=== PATIENT | male | born 1960 | race Caucasian/White ===

== ENCOUNTER 2021-02-07 10:31 | Emergency (ER) | payer OTHER, SELFPAY ==
[2021-02-07 10:37] VITALS: BP 154/86; PULSE 92; RESP 16; TEMP 37.5; O2SAT 98
[2021-02-07] MEDS: TETANUS,DIPHTHERIA,AC PERTUSSIS ADULT (0.5 ML) BOOSTRIX IM (11:16)
--- NOTE | 2021-02-07 11:53 | ED.GENADULT ---
HPI - General Adult General Chief complaint: Back Pain/Injury Stated complaint: head and back pain Time Seen by Provider: 02/07/21 10:58 Source: patient, family and RN notes reviewed Mode of arrival: ambulatory Limitations: no limitations History of Present Illness HPI narrative: Patient presents today complaint of a laceration to his forehead as well as right mid back pain. Patient fell down some stairs while intoxicated, likely striking his head either against the wall or against a stair. Denies loss of consciousness. Injury occurred last night approximately 12 hours prior to arrival. He struck his right scapular region on a stair as well and is having some pain to the mid back. He has not tried anything for pain prior to arrival. covered the forehead wound with a bandage last night. Patient is not up-to-date on his tetanus vaccine. MD complaint: Laceration, back pain Related Data Home Medications Medication Instructions Recorded Confirmed amlodipine 5 mg PO DAILY 02/07/21 02/07/21 lisinopril 40 mg PO DAILY 02/07/21 02/07/21 Allergies Allergy/AdvReac Type Severity Reaction Status Date / Time No Known Allergies Allergy Verified 02/07/21 10:55 Review of Systems Review of Systems: CONSTITUTIONAL: Denies body aches, fever, chills, or sweats. EYES: Denies visual changes, redness, or discharge. ENT: Denies rhinorrhea, congestion, sore throat, or otalgia. CARDIOVASCULAR: Denies chest pain, palpitations, or edema. RESPIRATORY: Denies cough or dyspnea. GASTROINTESTINAL: Denies abdominal pain, nausea, vomiting, or diarrhea. GENITOURINARY: Denies dysuria or hematuria. SKIN: Denies rash, itching, or wounds.+Right forehead laceration MUSCULOSKELETAL: Denies joint pain, or myalgia.+ Right mid back pain NEUROLOGIC: Denies headache, numbness, tingling, or weakness. PSYCH: Denies depression or anxiety. [facility] Past Medical History Medical History (Updated 02/08/21 @ 08:05 by Joselin Vick, [facility], ) Hypertension Comments At time of signature, I have reviewed and agree with nursing past medical, surgical, social and family history unless otherwise noted. Please see nursing chart for further information. There is no relevant family history pertinent to the presenting complaint Exam Narrative: GENERAL: Well-appearing, well-nourished, and in no acute distress. HEAD: Normocephalic, atraumatic. EYES: EOMI. PERRL. No redness or drainage. Conjunctivae normal. ENT: Mucous membranes pink and moist. NECK: Normal AROM. Supple. No lymphadenopathy. Nontender. CHEST: No respiratory distress. MUSCULOSKELETAL: No bony tenderness of the spine. Point muscular tenderness just under the right scapula. No ecchymosis or edema noted. Distal sensation intact. Capillary refill normal. EXTREMITIES: Normal range of motion. No edema. SKIN: Warm, dry, no rash. Capillary refill normal. Normal skin turgor. 2.5 cm x 0.5 cm full-thickness linear laceration to the right eyebrow extending to the midline forehead. No active bleeding. NEURO: No focal deficits. Alert and oriented x3. Gait steady. PSYCH: Normal affect. No signs of depression or anxiety. Course Vital Signs Vital signs: Vital Signs Temperature 99.5 F 02/07/21 10:37 Pulse Rate 92 02/07/21 10:37 Respiratory Rate 16 02/07/21 10:37 Blood Pressure 154/86 H 02/07/21 10:37 Pulse Oximetry 98 02/07/21 10:37 Temperature 99.5 F 02/07/21 10:37 Pulse Rate 92 02/07/21 10:37 Respiratory Rate 16 02/07/21 10:37 Blood Pressure 154/86 H 02/07/21 10:37 Pulse Oximetry 98 02/07/21 10:37 Procedures Laceration Laceration 1: Date: 02/07/21 Time: 11:53 Site: face Size (cm): 2.5 Description: linear Depth: simple, single layer Local Anesthetic: lidocaine 1% Amount of anesthesia used (mL): 3 Pre-repair: wound explored and irrigated ====== Skin Level ====== Skin layer closed with:
== END 2021-02-07 12:04 | disposition home or self-care (01) ==
PROVIDERS: Emergency Provider Nurse Practitioner; PCP Family Medicine
DX: S01.81XA Laceration without foreign body of other part of head, initial encounter (principal); W10.9XXA Fall (on) (from) unspecified stairs and steps, initial encounter; Z23 Encounter for immunization; I10 Essential (primary) hypertension
CPT/HCPCS: 12011; 90471; 90715; 99213; G0463

== ENCOUNTER 2023-09-30 09:19 | Outpatient (CLI) | payer OTHER, SELFPAY ==
--- NOTE | ~2023-09-30 | XR_ITS ---
Right Knee Technique: AP, lateral, and sunrise views were obtained. Clinical History: Osteoarthritis Findings: No fracture or dislocation is seen. Osseous alignment is anatomic. Joint spaces are preserv ed without degenerative or erosive change. Soft tissues are unremarkable. No joint effusion is seen. Impression: Unremarkable right knee radiographs. Reviewed, dictated and finalized at location . Impression: Unremarkable right knee radiographs.
--- NOTE | ~2023-09-30 | XR_ITS ---
Left Knee Technique: AP, lateral, and sunrise views were obtained. Clinical History: Osteoarthritis Findings: No fracture or dislocation is seen. Osseous alignment is anatomic. Joint spaces are preserv ed without degenerative or erosive change. Soft tissues are unremarkable. No joint effusion is seen. Impression: Unremarkable left knee radiographs. Reviewed, dictated and finalized at location . Impression: Unremarkable left knee radiographs.
== END 2023-09-30 09:20 | disposition home or self-care (01) ==
LOC: ANHIMG 09:22
PROVIDERS: PCP Family Medicine; Visit Provider Orthopaedic Surgery
DX: M17.0 Bilateral primary osteoarthritis of knee (principal)
CPT/HCPCS: 73564